=== PATIENT | female | born 1960 | race African-American/Black ===

== ENCOUNTER 2018-03-11 05:36 | Emergency (ER) | payer MEDICAID ==
[~2018-03-11] VITALS: Ht 175.3 cm; Wt 81.8 kg
[2018-03-11] MEDS ORDERED: CYCLOBENZAPRINE 10MG TABLET PO ONE (06:45)
[2018-03-11] MEDS ORDERED: HYDROCHLOROTHIAZIDE 25MG TABLET PO ONE (06:45)
[2018-03-11 08:36] VITALS: BP 148/78
== END 2018-03-11 08:42 | disposition home or self-care (01) ==
LOC: ER 05:36
DX: M54.2 Cervicalgia (principal); I10 Essential (primary) hypertension
CPT/HCPCS: 99283

== ENCOUNTER 2018-03-18 10:02 | Inpatient (IN) | payer MEDICAID ==
[~2018-03-18] VITALS: Ht 175.3 cm; Wt 87.1 kg
[2018-03-18] MEDS ORDERED: SODIUM CHLORIDE 0.9% 1,000 ML IV ONE (10:11)
[2018-03-18 11:01] LABS: BASOPHILS % 0.1 % (0.0-2.0); EOSINOPHILS % 0.1 % (0.0-5.0); HEMATOCRIT. 39.5 % (36.0-48.0); HEMOGLOBIN. 13.4 g/dL (12.0-16.0); LYMPHOCYTES % 19.5 % (20.0-50.0); MEAN CORPUSCULAR HEMOGLOBIN 30.4 pg (28.0-32.0); MEAN CORPUSCULAR VOLUME 89.7 fL (81.0-99.0); MEAN PLATELET VOLUME 9.8 fl (7.4-10.4); MONOCYTES % 6.9 % (2.0-8.0); NEUTROPHILS % 73.4 % (40.0-76.0); PLATELET 289 x1000/uL (130-400); RED CELL DISTRIBUTION WIDTH 13.2 % (11.6-14.6)
[2018-03-18 11:07] LABS: CHLORIDE 95 mEq/L (98-107); INR 1.1; PARTIAL THROMBOPLASTIN TIME 28.7 sec (23.4-31.0)
[2018-03-18] MEDS ORDERED: ASPIRIN 325MG EC TABLET PO ONE (11:30)
[2018-03-18] MEDS ORDERED: POTASSIUM CHLORIDE 20MEQ TABLET SR PO ONE (11:30)
[2018-03-18 14:23] LABS: CLARITY URINE CLOUDY (CLEAR); COLOR URINE YELLOW (YELLOW); KETONES URINE 1+ (NEGATIVE); LEUKOCYTE ESTERASE URINE NEGATIVE (NEGATIVE); NITRITE URINE NEGATIVE (NEGATIVE); OCCULT BLOOD URINE NEGATIVE (NEGATIVE); PROTEIN URINE NEGATIVE (NEGATIVE); SPECIFIC GRAVITY URINE 1.019 (1.005-1.030); UROBILINOGEN URINE 0.2 E.U./dL (0.2-1.0)
[2018-03-18] MEDS ORDERED: ACETAMINOPHEN 650MG SUPP PR PRN (14:45)
[2018-03-18] MEDS ORDERED: LORAZEPAM 2MG/ML CPJ IV PRN (14:45)
[2018-03-18] MEDS ORDERED: ONDANSETRON HCL 4MG/2ML INJ IV PRN (14:45)
[2018-03-18] MEDS ORDERED: ACETAMINOPHEN 650MG/20.3ML UDC GT PRN (14:45)
[2018-03-18] MEDS: LOSARTAN POTASSIUM 25 MG TABLET PO SCH ×2 (14:45→21:00)
[2018-03-18] MEDS ORDERED: ENOXAPARIN 40MG/0.4ML SYR SUBCUT NR (16:00)
[2018-03-18 17:33] LABS: FOLIC ACID (FOLATE) SERUM 19.7 ng/mL (>5.38)
[2018-03-18] MEDS ORDERED: HYDR-4134 MT (18:11)
[2018-03-18] MEDS ORDERED: ASA5EC MT (18:11)
[2018-03-18 18:12] LABS: ETHANOL BLOOD < 10 mg/dL; T4 FREE 1.32 ng/dL (0.76-1.46)
[2018-03-18 19:09] VITALS: BP 152/83
[2018-03-18 20:23] VITALS: BP 128/80
[2018-03-18 22:18] LABS: CREATINE KINASE 166 IU/L (26-192); CREATINE KINASE MB FRACTION 1.1 ng/mL (0.5-3.6)
[2018-03-19] VITALS (7 sets, daily range): BP systolic 117–153; BP diastolic 74–88
[2018-03-19] MEDS: ACETAMINOPHEN 325MG TABLET PO PRN ×3 (00:22→16:43)
[2018-03-19] MEDS ORDERED: CLOPIDOGREL 75MG TABLET PO SCH (09:00)
[2018-03-19] MEDS ORDERED: ENOXAPARIN 40MG/0.4ML SYR SUBCUT SCH (09:00)
[2018-03-19] MEDS: LOSARTAN POTASSIUM 25 MG TABLET PO SCH ×2 (09:15→21:06)
[2018-03-19] MEDS: HYDROCODONE/ACETAMINOPHEN 5/325MG TABLET PO PRN (10:47)
[2018-03-19 13:02] LABS: BASOPHILS % 0.2 % (0.0-2.0); EOSINOPHILS % 0.7 % (0.0-5.0); HEMATOCRIT. 35.6 % (36.0-48.0); HEMOGLOBIN. 12.1 g/dL (12.0-16.0); LYMPHOCYTES % 25.8 % (20.0-50.0); MEAN CORPUSCULAR HEMOGLOBIN 30.3 pg (28.0-32.0); MEAN CORPUSCULAR VOLUME 89.4 fL (81.0-99.0); MONOCYTES % 12.1 % (2.0-8.0); NEUTROPHILS % 61.2 % (40.0-76.0); PLATELET 250 x1000/uL (130-400); RED BLOOD CELL COUNT 3.98 mill/uL (4.2-5.4); RED CELL DISTRIBUTION WIDTH 13.4 % (11.6-14.6)
[2018-03-19 13:51] LABS: CHLORIDE 100 mEq/L (98-107)
[2018-03-19 14:08] LABS: CREATINE KINASE 156 IU/L (26-192); CREATINE KINASE MB FRACTION < 1.0 ng/mL (0.5-3.6); HDL CHOLESTEROL 67 mg/dL (40-59); LDL CHOLESTEROL 112 mg/dL (5-100); T4 FREE 1.31 ng/dL (0.76-1.46)
[2018-03-19] MEDS ORDERED: CLOP75TA16 PO (14:13)
[2018-03-19] MEDS ORDERED: LOSA25TA3 PO (14:13)
[2018-03-19] MEDS ORDERED: ATOR10TA69 MT (16:21)
[2018-03-20] VITALS: BP 159/81
[2018-03-20 04:00] VITALS: BP 150/83
[2018-03-20] MEDS: ACETAMINOPHEN 325MG TABLET PO PRN ×2 (04:52→17:39)
[2018-03-20 08:07] VITALS: BP 144/76
[2018-03-20] MEDS: LOSARTAN POTASSIUM 25 MG TABLET PO SCH ×2 (08:53→20:35)
[2018-03-20 12:32] VITALS: BP 148/80
[2018-03-20] MEDS: HYDROCODONE/ACETAMINOPHEN 5/325MG TABLET PO PRN (13:56)
[2018-03-20 14:43] LABS: CLARITY URINE TURBID (CLEAR); COLOR URINE YELLOW (YELLOW); KETONES URINE TRACE (NEGATIVE); LEUKOCYTE ESTERASE URINE NEGATIVE (NEGATIVE); NITRITE URINE NEGATIVE (NEGATIVE); OCCULT BLOOD URINE NEGATIVE (NEGATIVE); PH URINE 5.5 (4.5-8.0); PROTEIN URINE NEGATIVE (NEGATIVE); SPECIFIC GRAVITY URINE 1.022 (1.005-1.030); UROBILINOGEN URINE 0.2 E.U./dL (0.2-1.0)
[2018-03-20 16:30] VITALS: BP 142/86
[2018-03-20 20:00] VITALS: BP 151/89
[2018-03-20 22:15] LABS: CLARITY URINE CLEAR (CLEAR); COLOR URINE YELLOW (YELLOW); KETONES URINE NEGATIVE (NEGATIVE); LEUKOCYTE ESTERASE URINE NEGATIVE (NEGATIVE); NITRITE URINE NEGATIVE (NEGATIVE); OCCULT BLOOD URINE NEGATIVE (NEGATIVE); PH URINE 6.5 (4.5-8.0); PROTEIN URINE NEGATIVE (NEGATIVE); SPECIFIC GRAVITY URINE 1.021 (1.005-1.030); UROBILINOGEN URINE 0.2 E.U./dL (0.2-1.0)
[2018-03-20 22:26] LABS: *AMPHETAMINES SCREEN URINE NEGATIVE (NEGATIVE); *BARBITURATES SCREEN URINE NEGATIVE (NEGATIVE); *BENZODIAZEPINES SCREEN URINE NEGATIVE (NEGATIVE); *COCAINE SCREEN URINE NEGATIVE (NEGATIVE); CANNABINOID URINE SCREEN NEGATIVE (NEGATIVE); METHADONE URINE SCREEN NEGATIVE (NEGATIVE); OPIATES URINE SCREEN PRESUMTIVE POSITIVE (NEGATIVE); PHENCYCLIDINE URINE SCREEN NEGATIVE (NEGATIVE)
[2018-03-21] VITALS: BP 165/80
[2018-03-21 04:00] VITALS: BP 155/79
[2018-03-21 08:00] VITALS: BP 153/86
[2018-03-21 09:53] LABS: BASOPHILS % 0.3 % (0.0-2.0); EOSINOPHILS % 3.1 % (0.0-5.0); HEMATOCRIT. 34.7 % (36.0-48.0); HEMOGLOBIN. 11.7 g/dL (12.0-16.0); LYMPHOCYTES % 35.6 % (20.0-50.0); MEAN CORPUSCULAR HEMOGLOBIN 30.3 pg (28.0-32.0); MEAN CORPUSCULAR VOLUME 89.7 fL (81.0-99.0); MEAN PLATELET VOLUME 10.4 fl (7.4-10.4); MONOCYTES % 11.4 % (2.0-8.0); NEUTROPHILS % 49.6 % (40.0-76.0); PLATELET 232 x1000/uL (130-400); RED BLOOD CELL COUNT 3.87 mill/uL (4.2-5.4); RED CELL DISTRIBUTION WIDTH 13.5 % (11.6-14.6)
[2018-03-21] MEDS: LOSARTAN POTASSIUM 25 MG TABLET PO SCH ×2 (10:14→20:34)
[2018-03-21 12:28] LABS: CHLORIDE 99 mEq/L (98-107)
[2018-03-21 13:06] LABS: ANTI-THROMBIN ACTIVITY 100 % (75-135); PROTEIN C FUNCTIONAL 123 % (73-180); PTT-LA 42.8 sec (0.0-51.9)
[2018-03-21 14:22] LABS: LUPUS ANTICOAG INTERPRETATION Comment: (.)
[2018-03-21 16:00] VITALS: BP 165/88
[2018-03-21] MEDS: CLONIDINE 0.1MG TABLET PO PRN (17:18)
[2018-03-21 20:00] VITALS: BP 155/88
[2018-03-21] MEDS: ACETAMINOPHEN 325MG TABLET PO PRN (20:34)
[2018-03-22] VITALS: BP 157/81
[2018-03-22 04:00] VITALS: BP 125/89
[2018-03-22 07:51] LABS: CHLORIDE 98 mEq/L (98-107)
[2018-03-22 07:56] LABS: BASOPHILS % 0.4 % (0.0-2.0); EOSINOPHILS % 2.8 % (0.0-5.0); HEMATOCRIT. 35.5 % (36.0-48.0); HEMOGLOBIN. 12.1 g/dL (12.0-16.0); LYMPHOCYTES % 37.9 % (20.0-50.0); MEAN CORPUSCULAR HEMOGLOBIN 30.6 pg (28.0-32.0); MEAN CORPUSCULAR VOLUME 89.7 fL (81.0-99.0); MEAN PLATELET VOLUME 10.1 fl (7.4-10.4); MONOCYTES % 11.5 % (2.0-8.0); NEUTROPHILS % 47.4 % (40.0-76.0); PLATELET 244 x1000/uL (130-400); RED BLOOD CELL COUNT 3.96 mill/uL (4.2-5.4); RED CELL DISTRIBUTION WIDTH 13.1 % (11.6-14.6)
[2018-03-22 08:00] VITALS: BP 145/92
[2018-03-22 08:01] LABS: C REACTIVE PROTEIN QUANT 4.8 mg/L (0.0-3.0)
[2018-03-22] MEDS: LOSARTAN POTASSIUM 25 MG TABLET PO SCH ×2 (09:27→20:41)
[2018-03-22 11:31] VITALS: BP 157/84
[2018-03-22] MEDS: ACETAMINOPHEN 325MG TABLET PO PRN ×2 (12:20→20:42)
[2018-03-22 17:06] LABS: ANTI-CARDIOLIPIN AB IGA < 9 APL U/mL (0-11); ANTI-CARDIOLIPIN AB IGG < 9 GPL U/mL (0-14); ANTI-CARDIOLIPIN AB IGM < 9 MPL U/mL (0-12)
[2018-03-22] MEDS: CLONIDINE 0.1MG TABLET PO PRN (17:39)
[2018-03-22 20:00] VITALS: BP 154/86
[2018-03-22 23:23] VITALS: BP 141/80
[2018-03-23] VITALS (7 sets, daily range): BP systolic 144–168; BP diastolic 60–93
[2018-03-23] MEDS: ACETAMINOPHEN 325MG TABLET PO PRN (05:49)
[2018-03-23 07:17] LABS: BASOPHILS % 0.4 % (0.0-2.0); EOSINOPHILS % 2.8 % (0.0-5.0); HEMATOCRIT. 34.9 % (36.0-48.0); LYMPHOCYTES % 35.6 % (20.0-50.0); MEAN CORPUSCULAR HEMOGLOBIN 30.5 pg (28.0-32.0); MEAN CORPUSCULAR VOLUME 89.1 fL (81.0-99.0); MONOCYTES % 11.3 % (2.0-8.0); NEUTROPHILS % 49.9 % (40.0-76.0); PLATELET 262 x1000/uL (130-400); RED BLOOD CELL COUNT 3.92 mill/uL (4.2-5.4); RED CELL DISTRIBUTION WIDTH 13.3 % (11.6-14.6)
[2018-03-23 07:46] LABS: CHLORIDE 98 mEq/L (98-107)
[2018-03-23] MEDS: LOSARTAN POTASSIUM 25 MG TABLET PO SCH (09:27)
[2018-03-23] MEDS ORDERED: IOHEXOL-300 100 ML BOTTLE ONE (14:02)
[2018-03-23] MEDS: CLONIDINE 0.1MG TABLET PO PRN (17:12)
[2018-03-23] MEDS ORDERED: LOSARTAN POTASSIUM 50 MG TABLET PO SCH (21:00)
[2018-03-23] MEDS ORDERED: AMLODIPINE 5MG TABLET PO SCH (21:00)
[2018-03-25 13:10] LABS: AChR BLOCKING ABS SERUM 12 % (0-25)
== END 2018-03-23 22:47 | disposition home or self-care (01) | DRG 47 ==
LOC: ER 10:02 → EDBEDREQ 10:23 → 6WST 11:43 → EDBEDREQ 11:50 → EDBEDREQTM 11:50 → ENRESERV 15:37 → 6WST 18:26
PROVIDERS: ADMIT Internal Medicine; ATTEND Internal Medicine
DX: G45.9 Transient cerebral ischemic attack, unspecified (principal); R65.10 Systemic inflammatory response syndrome (SIRS) of non-infectious origin without acute organ dysfunction; E87.1 Hypo-osmolality and hyponatremia; E87.8 Other disorders of electrolyte and fluid balance, not elsewhere classified; B34.9 Viral infection, unspecified; E87.6 Hypokalemia; I10 Essential (primary) hypertension; R73.9 Hyperglycemia, unspecified; H02.402 Unspecified ptosis of left eyelid; Z79.02 Long term (current) use of antithrombotics/antiplatelets; Z79.82 Long term (current) use of aspirin
CPT/HCPCS: 36415; 70544; 70551; 71045; 71260; 74177; 80048; 80061; 80305; 81400; 81403; 81407; 81479; 82550; 82553; 82607; 82746; 82962; 83036; 83519; 83880; 84145; 84439; 84443; 84481; 84484; 85300; 85303; 85306; 85613; 85651; 85732; 86140; 86147; 87804; 92610; 93005; 93306; 93880; 93970; 96360; 96361; 97162; 97165; 99285; G0482; J1650; J7030; Q9967

== ENCOUNTER 2018-07-26 22:17 | Emergency (ER) | payer MEDICAID ==
[~2018-07-26] VITALS: Ht 175.3 cm; Wt 87.0 kg
[~2018-07-26 22:17] MED LIST: ATOR10TA69 MT; LOSA25TA3 PO
[2018-07-27] MEDS ORDERED: KETOROLAC 60MG/2ML VIAL IM STA (00:02)
[2018-07-27] MEDS ORDERED: LOSARTAN POTASSIUM 25 MG TABLET PO ONE (00:15)
[2018-07-27] MEDS ORDERED: CYCLOBENZAPRINE 10MG TABLET PO ONE (00:15)
[2018-07-27 00:28] LABS: BASOPHILS % 0.3 % (0.0-2.0); EOSINOPHILS % 1.2 % (0.0-5.0); HEMATOCRIT. 36.8 % (36.0-48.0); HEMOGLOBIN. 12.2 g/dL (12.0-16.0); MEAN CORPUSCULAR HEMOGLOBIN 30.1 pg (28.0-32.0); MEAN CORPUSCULAR VOLUME 91.1 fL (81.0-99.0); MEAN PLATELET VOLUME 9.6 fl (7.4-10.4); MONOCYTES % 7.9 % (2.0-8.0); NEUTROPHILS % 65.6 % (40.0-76.0); PLATELET 242 x1000/uL (130-400); RED BLOOD CELL COUNT 4.04 mill/uL (4.2-5.4)
[2018-07-27 00:29] LABS: CLARITY URINE CLEAR (CLEAR); COLOR URINE YELLOW (YELLOW); KETONES URINE NEGATIVE (NEGATIVE); LEUKOCYTE ESTERASE URINE NEGATIVE (NEGATIVE); NITRITE URINE NEGATIVE (NEGATIVE); OCCULT BLOOD URINE NEGATIVE (NEGATIVE); PROTEIN URINE NEGATIVE (NEGATIVE); SPECIFIC GRAVITY URINE 1.026 (1.005-1.030)
[2018-07-27 00:35] LABS: CHLORIDE 111 mEq/L (98-107)
[2018-07-27 01:03] VITALS: BP 177/90
== END 2018-07-27 01:18 | disposition home or self-care (01) ==
LOC: ER 22:17
DX: M54.30 Sciatica, unspecified side (principal); I16.0 Hypertensive urgency; I10 Essential (primary) hypertension; Z79.899 Other long term (current) drug therapy
CPT/HCPCS: 36415; 80053; 81003; 85025; 93005; 96372; 99284; J1885